=== PATIENT | female | born 1985 | race Caucasian/White ===

== ENCOUNTER 2017-07-22 22:05 | Emergency (ER) | payer SELFPAY ==
[~2017-07-22] VITALS: Ht 157.5 cm; Wt 75.6 kg
[2017-07-22] MEDS ORDERED: MOTRIN600 MG PO (23:41)
[2017-07-22 23:46] VITALS: BP 123/84
== END 2017-07-22 23:50 | disposition home or self-care (01) ==
LOC: EME 22:05
DX: S20.219A Contusion of unspecified front wall of thorax, initial encounter (principal); S20.02XA Contusion of left breast, initial encounter; S00.03XA Contusion of scalp, initial encounter; S00.83XA Contusion of other part of head, initial encounter; S10.93XA Contusion of unspecified part of neck, initial encounter; Y04.8XXA Assault by other bodily force, initial encounter; Y07.59 Other non-family member, perpetrator of maltreatment and neglect; F32.9 Major depressive disorder, single episode, unspecified; F41.9 Anxiety disorder, unspecified; Z87.891 Personal history of nicotine dependence
CPT/HCPCS: 71101